=== PATIENT | female | born 1945 ===

== ENCOUNTER 2017-07-31 11:52 | Day surgery (SDC) | payer OTHER ==
[2017-07-31 12:19] VITALS: BMI 27.4
[2017-07-31] MEDS ORDERED: Lactated Ringer's 500 ML IV ONE (12:21)
[2017-07-31 12:35] VITALS: TEMP 97
[2017-07-31] MEDS ORDERED: Propofol 10 mg/ml Inj (20 ML) ONE (13:12)
[2017-07-31 13:44] VITALS: BP 114/70; PULSE 88; RESP 18; O2SAT 96
== END 2017-07-31 13:45 | disposition home or self-care (01) ==
LOC: H.ENDO 11:52
PROVIDERS: ATTEND Internal Medicine Gastroenterology
DX: K29.50 Unspecified chronic gastritis without bleeding (principal); R12 Heartburn; R10.13 Epigastric pain; K31.7 Polyp of stomach and duodenum; K31.89 Other diseases of stomach and duodenum; E11.9 Type 2 diabetes mellitus without complications; E78.5 Hyperlipidemia, unspecified; I10 Essential (primary) hypertension
CPT/HCPCS: 43239; 82948; 88305; 88342; J2001; J2704; J7120

== ENCOUNTER 2017-10-09 09:57 | Day surgery (SDC) | payer OTHER ==
[2017-10-09] MEDS ORDERED: Lactated Ringer's 500 ML IV ONE (10:12)
[2017-10-09] MEDS ORDERED: Propofol 10 mg/ml Inj (20 ML) ONE (13:42)
[2017-10-09 14:07] VITALS: TEMP 97.5
[2017-10-09 14:25] VITALS: BP 117/67; PULSE 75; RESP 19; O2SAT 100
== END 2017-10-09 14:29 | disposition home or self-care (01) ==
LOC: H.ENDO 09:57
PROVIDERS: ATTEND Internal Medicine Gastroenterology
DX: Z12.11 Encounter for screening for malignant neoplasm of colon (principal); D12.3 Benign neoplasm of transverse colon; D12.2 Benign neoplasm of ascending colon; K63.89 Other specified diseases of intestine; K57.30 Diverticulosis of large intestine without perforation or abscess without bleeding; E11.9 Type 2 diabetes mellitus without complications; E78.5 Hyperlipidemia, unspecified; R25.1 Tremor, unspecified
CPT/HCPCS: 45380; 82948; 88305; J2001; J2704; J7120